=== PATIENT | female | born 1995 | race Two or more races ===

== ENCOUNTER 2025-03-19 19:04 | Emergency (ER) | payer MEDICAID, SELFPAY ==
[2025-03-19 19:05] VITALS: BMI 32.5
--- NOTE | 2025-03-19 20:28 | PC.NURSE ---
Pt did not answer when name was called in the lobby and was not found outside.
--- NOTE | 2025-03-19 20:44 | PC.NURSE ---
PT CALLED AT 2020, 2030 AND 2039 NO ANSWER.
== END 2025-03-19 20:50 | disposition left against medical advice (07) ==
LOC: SERX 20:47
PROVIDERS: Emergency Provider Emergency Medicine
DX: Z53.21 Procedure and treatment not carried out due to patient leaving prior to being seen by health care provider (principal)
CPT/HCPCS: 99282